=== PATIENT | female | born 1990 | race Caucasian/White ===

== ENCOUNTER 2018-12-28 18:08 | Emergency (ER) | payer OTHER ==
[2018-12-28] MEDS ORDERED: SODIUM CHLORIDE 0.9% 1,000 ML IV STA (18:24)
[2018-12-28] MEDS ORDERED: ACETAMINOPHEN TAB 325 MG TAB PO STA (18:24)
--- NOTE | 2018-12-28 18:24 | ED ---
Abdominal Pain HPI - General Chief Complaint: Abdominal Pain Stated Complaint: POSS UTI, ACHY, FEVER Time Seen by Provider: 12/28/18 18:19 Source: patient Mode of arrival: ambulatory Limitations: no limitations - History of Present Illness Initial Comments: 28-year-old female who denies past medical history presents today for chief complaint of dysuria urgency frequency x 2-3 days. Patient states she has had urinary tract infection symptoms for the past 2-3 days. She states that she attempted to "flush" the urinary tract infection but increasing her fluids and adding cranberry juice to water. She states that this seemed to help with the dysuria. Patient states though today she developed fever in the 100s she states this was low-grade. She states that she's had chills and generalized body aches. Patient states she has noticed some bilateral flank pain. She denies any hematuria. Patient denies history of kidney stone. Patient denies any severe pain. Patient denies abdominal pain. Patient states she does have a slight amount of vaginal discharge that she feels is normal. Denies any orders or pain with sex. Patient denies any diarrhea or any other associated symptoms. Upon arrival patient is febrile. Heart rate 93. Blood pressure within normal limits. Patient appears well there is no signs of acute distress. Patient does not appear toxic. - Related Data Home Medications Medication Instructions Recorded Confirmed Vit No.124/Iron/Folic 1 each PO DAILY 11/25/14 12/26/14 [ Vitamin Tablet] Previous Rx's Medication Instructions Recorded Acetaminophen-Codeine 300-30mg 1 - 2 each PO Q4HR PRN #40 tab 12/27/14 [Tylenol w/codeine #3] Ibuprofen [Motrin] 600 mg PO Q6HR PRN #40 tab 12/27/14 Cephalexin [Keflex] 500 mg PO Q6HR 10 Days #40 cap 12/28/18 Allergies Allergy/AdvReac Type Severity Reaction Status Date / Time No Known Allergies Allergy Verified 12/28/18 18:22 Review of Systems ROS Statement: Those systems with pertinent positive or pertinent negative responses have been documented in the HPI. ROS Other: All systems not noted in ROS Statement are negative. Past Medical History Past Medical History: No Reported History Additional Past Medical History / Comment(s): OB history: First she delivered at 37 weeks 4#14 oz. This is her second and she has had care with me since 7 weeks. B neg, abs neg, Rub Imm, RPR NR, Hep B neg, HIV NR, declined quad, normal 1hr GTT, had rhogam at 28 weeks on 10-16-14. GBS neg. She did have an abscess in her axilla at 24 weeks that grew MRSA. History of Any Multi-Drug Resistant Organisms: MRSA Date of last positivie culture/infection: 295025 MDRO Source:: Pt states MRSA in right axilla Past Surgical History: Section Additional Past Surgical History / Comment(s): eyes, sinus Past Psychological History: Anxiety, Depression Smoking Status: Former smoker Past Alcohol Use History: Occasional Past Drug Use History: None Reported - Past Family History Father Family Medical History: Hypertension General Exam - General Exam Comments Initial Comments: General: The patient is awake and alert, in no distress, and does not appear acutely ill. Eye: +3 mm pupils are equal, round and reactive to light, extra-ocular movements are intact. No nystagmus. There is normal conjunctiva bilaterally. No signs of icterus. Cardiovascular: There is a regular rate and rhythm. No murmur, rub or gallop is appreciated. Respiratory: Lungs are clear to auscultation, respirations are non-labored, breath sounds are equal. No wheezes, stridor, rales, or rhonchi. Gastrointestinal: Soft, non-distended, non-tender abdomen without masses or organomegaly noted. There is no rebound or guarding present. No CVA tenderness. Bowel sounds are unremarkable. Pelvic: No external lesions, vaginal mucosa pink well rugated. Small amount of scant thin discharge in the vaginal vault without odor. No adnexal or cervical motion tenderness. No lesions noted on the cervix. Musculoskeletal: Normal ROM, no tenderness. Strength 5/5. Sensation intact. Pulses equal bilaterally 2+. Neurological: A&O x 3. CN II-XII intact, There are no obvious motor or sensory deficits. Coordination appears grossly intact. Speech is normal. Skin: Skin is warm and dry and no rashes or lesions are noted. Psychiatric: Cooperative, appropriate mood & affect, normal judgment. Limitations: no limitations Course Vital Signs 12/28/18 12/28/18 18:19 19:56 Temperature 100.8 F H 99.5 F Pulse Rate 93 75 Respiratory 20 18 Rate Blood Pressure 126/67 111/61 O2 Sat by Pulse 100 98 Oximetry Medical Decision Making - Medical Decision Making Well appearing 28yo female presenting for urinary tract infection symptoms. Patient sensitive been ongoing for the past 2-3 days. Patient denies any significant vaginal discharge. A pelvic exam there is no evidence of PID. Urinalysis consistent with a urinary tract infection with patient's complaints of fever some mild flank pain as well as leukocytosis consistent with diagnosis of pyelonephritis. At this time she does not appear septic nor toxic. She is very well-appearing. Patient has not been on outpatient antibiotics. Patient is given a single dose of ceftriaxone in the emergency department. Patient was discharged with prescription for Keflex. At this time I feel patient is stable for outpatient treatment for pyelonephritis. Return parameters were discussed at length the patient who verbalizes understanding. Urine culture is pending. I discussed the case maintained provider Dr. Perdomo prior to patients discharge. - Lab Data Result diagrams: 12/28/18 18:55 12/28/18 18:55 Lab Results 12/28/18 12/28/18 12/28/18 Range/Units 18:55 18:55 18:55 WBC 14.4 H (3.8-10.6) k/uL RBC 4.53 (3.80-5.40) m/uL Hgb 13.7 (11.4-16.0) gm/dL Hct 41.4 (34.0-46.0) % MCV 91.4 (80.0-100.0) fL MCH 30.3 (25.0-35.0) pg MCHC 33.1 (31.0-37.0) g/dL RDW 13.2 (11.5-15.5) % Plt Count 151 (150-450) k/uL Neutrophils % 79 % Lymphocytes % 15 % Monocytes % 4 % Eosinophils % 1 % Basophils % 0 % Neutrophils # 11.4 H (1.3-7.7) k/uL Lymphocytes # 2.2 (1.0-4.8) k/uL Monocytes # 0.6 (0-1.0) k/uL Eosinophils # 0.1 (0-0.7) k/uL Basophils # 0.0 (0-0.2) k/uL Sodium 139 (137-145) mmol/L Potassium 5.2 H (3.5-5.1) mmol/L Chloride 102 (98-107) mmol/L Carbon Dioxide 27 (22-30) mmol/L Anion Gap 10 mmol/L BUN 11 (7-17) mg/dL Creatinine 0.66 (0.52-1.04) mg/dL Est GFR (CKD-EPI)AfAm >90 (>60 ml/min/1.73 sqM) Est GFR (CKD-EPI)NonAf >90 (>60 ml/min/1.73 sqM) Glucose 95 (74-99) mg/dL Plasma Lactic Acid Jayden (0.7-2.0) mmol/L Calcium 9.2 (8.4-10.2) mg/dL Total Bilirubin 1.3 (0.2-1.3) mg/dL AST 43 H (14-36) U/L ALT 6 L (9-52) U/L Alkaline Phosphatase 67 (38-126) U/L Total Protein 8.1 (6.3-8.2) g/dL Albumin 4.8 (3.5-5.0) g/dL Urine Color Urine Appearance (Clear) Urine pH (5.0-8.0) Ur Specific Gladys (1.001-1.035) Urine Protein (Negative) Urine Glucose (UA) (Negative) Urine Ketones (Negative) Urine Blood (Negative) Urine Nitrite (Negative) Urine Bilirubin (Negative) Urine Urobilinogen (<2.0) mg/dL Ur Leukocyte Esterase (Negative) Urine RBC (0-5) /hpf Urine WBC (0-5) /hpf Ur Squamous Epith Cells (0-4) /hpf Urine Mucus (None) /hpf Urine HCG, Qual Not Detected (Not Detectd) Trichomonas Ag (Rapid) (Negative) 12/28/18 12/28/18 12/28/18 Range/Units 18:55 18:55 18:55 WBC (3.8-10.6) k/uL RBC (3.80-5.40) m/uL Hgb (11.4-16.0) gm/dL Hct (34.0-46.0) % MCV (80.0-100.0) fL MCH (25.0-35.0) pg MCHC (31.0-37.0) g/dL RDW (11.5-15.5) % Plt Count (150-450) k/uL Neutrophils % % Lymphocytes % % Monocytes % % Eosinophils % % Basophils % % Neutrophils # (1.3-7.7) k/uL Lymphocytes # (1.0-4.8) k/uL Monocytes # (0-1.0) k/uL Eosinophils # (0-0.7) k/uL Basophils # (0-0.2) k/uL Sodium (137-145) mmol/L Potassium (3.5-5.1) mmol/L Chloride (98-107) mmol/L Carbon Dioxide (22-30) mmol/L Anion Gap mmol/L BUN (7-17) mg/dL Creatinine (0.52-1.04) mg/dL Est GFR (CKD-EPI)AfAm (>60 ml/min/1.73 sqM) Est GFR (CKD-EPI)NonAf (>60 ml/min/1.73 sqM) Glucose (74-99) mg/dL Plasma Lactic Acid Jayden 1.3 (0.7-2.0) mmol/L Calcium (8.4-10.2) mg/dL Total Bilirubin (0.2-1.3) mg/dL AST (14-36) U/L ALT (9-52) U/L Alkaline Phosphatase (38-126) U/L Total Protein (6.3-8.2) g/dL Albumin (3.5-5.0) g/dL Urine Color Light Yellow Urine Appearance Clear (Clear) Urine pH 8.0 (5.0-8.0) Ur Specific Gladys 1.008 (1.001-1.035) Urine Protein Negative (Negative) Urine Glucose (UA) Negative (Negative) Urine Ketones Negative (Negative) Urine Blood Negative (Negative) Urine Nitrite Negative (Negative) Urine Bilirubin Negative (Negative) Urine Urobilinogen <2.0 (<2.0) mg/dL Ur Leukocyte Esterase Moderate H (Negative) Urine RBC 2 (0-5) /hpf Urine WBC 37 H (0-5) /hpf Ur Squamous Epith Cells <1 (0-4) /hpf Urine Mucus Rare H (None) /hpf Urine HCG, Qual (Not Detectd) Trichomonas Ag (Rapid) Negative (Negative) Disposition Clinical Impression: Pyelonephritis Disposition: HOME SELF-CARE Condition: Good Instructions (If sedation given, give patient instructions): Kidney Infection (ED) Additional Instructions: Please use medication as discussed. Please follow-up with family doctor in the next 2 days. Please return to emergency room if the symptoms increase or worsen or for any other concerns, persistent fever, overall feeling unwell, increasing pain, persistent symptoms. Prescriptions: Cephalexin [Keflex] 500 mg PO Q6HR 10 Days #40 cap Is patient prescribed a controlled substance at d/c from ED?: No Referrals: None,Stated [Primary Care Provider] - 1-2 days [facility] [NON-STAFF] - 1-2 days Time of Disposition: 19:45
[2018-12-28 19:15] LABS: Appearance,Urine Clear (Clear); Bilirubin,Urine Negative (Negative); Blood,Urine Negative (Negative); Color,Urine Light Yellow; Glucose,Urine (UA) Negative (Negative); Ketones,Urine Negative (Negative); Leukocyte Esterase,Urine Moderate (Negative); Mucus,Urine Rare /hpf; Nitrite,Urine Negative (Negative); Protein,Urine Negative (Negative); RBC,Urine 2 /hpf (0-5); Specific Gravity,Urine 1.008 (1.001-1.035); Squamous Epithelial Cell,Urine <1 /hpf (0-4); Urobilinogen,Urine <2.0 mg/dL (<2.0); WBC,Urine 37 /hpf (0-5)
[2018-12-28 19:18] LABS: Basophils % (A) 0 %; Eosinophils # (A) 0.1 k/uL (0-0.7); Eosinophils % (A) 1 %; HCT 41.4 % (34.0-46.0); HGB 13.7 gm/dL (11.4-16.0); Lymphocytes # (A) 2.2 k/uL (1.0-4.8); Lymphocytes % (A) 15 %; MCH 30.3 pg (25.0-35.0); MCHC 33.1 g/dL (31.0-37.0); MCV 91.4 fL (80.0-100.0); Mean Platelet Volume 9.2; Monocytes # (A) 0.6 k/uL (0-1.0); Monocytes % (A) 4 %; Neutrophils # (A) 11.4 k/uL (1.3-7.7); Neutrophils % (A) 79 %; Platelet Count 151 k/uL (150-450); RBC 4.53 m/uL (3.80-5.40); RDW 13.2 % (11.5-15.5); WBC 14.4 k/uL (3.8-10.6)
[2018-12-28 19:27] LABS: ALT 6 U/L (9-52); AST 43 U/L (14-36); African American GFR (CKD) >90 (>60 ml/min/1.73 sqM); Albumin 4.8 g/dL (3.5-5.0); Alkaline Phosphatase 67 U/L (38-126); Anion Gap 10 mmol/L; Blood Urea Nitrogen 11 mg/dL (7-17); Calcium 9.2 mg/dL (8.4-10.2); Carbon Dioxide 27 mmol/L (22-30); Chloride 102 mmol/L (98-107); Glucose 95 mg/dL (74-99); Sodium 139 mmol/L (137-145); Total Bilirubin 1.3 mg/dL (0.2-1.3); Total Protein 8.1 g/dL (6.3-8.2)
[2018-12-28 19:29] LABS: Potassium 5.2 mmol/L (3.5-5.1)
[2018-12-28] MEDS ORDERED: cefTRIAXone IN SWFI 1,000 MG/10 ML SYRINGE IVP STA (19:29)
[2018-12-28 19:57] VITALS: BP 111/61; PULSE 75; RESP 18; TEMP 99.5
[2018-12-30 13:38] LABS: C. trachomatis,PCR Negative (Neg,Equiv); Chlamydia trachomatis Source Vagina; N. gonorrhoeae,PCR Negative (Neg,Equiv); Neisseria Source Vagina
== END 2018-12-28 19:57 | disposition home or self-care (01) ==
LOC: EC 18:08
DX: N12 Tubulo-interstitial nephritis, not specified as acute or chronic (principal); D72.829 Elevated white blood cell count, unspecified; N39.0 Urinary tract infection, site not specified; Z86.14 Personal history of Methicillin resistant Staphylococcus aureus infection; Z87.891 Personal history of nicotine dependence
CPT/HCPCS: 36415; 80053; 83605; 85025; 81001; 81025; 87040; 87808; 87491; 87591; 87070; 87086; 87077; 87186; 99284; 96374; 96361; J0696; 87205

== ENCOUNTER 2020-11-30 19:18 | Emergency (ER) | payer OTHER ==
[2020-11-30 19:30] VITALS: BP 115/82; PULSE 94; RESP 18; TEMP 97.8
[2020-11-30] MEDS ORDERED: ACETAMINOPHEN TAB 325 MG TAB PO STA (19:49)
[2020-11-30] MEDS ORDERED: IBUPROFEN 600 MG TAB PO STA (19:49)
--- NOTE | 2020-11-30 21:04 | XR ---
Right ankle HISTORY: Trauma and pain 3 views the right ankle There is soft tissue swelling present. Bone mineralization, joint spaces and alignment are maintained . IMPRESSION: No fracture or dislocation. Soft tissue swelling.
--- NOTE | 2020-11-30 21:11 | ED ---
Lower Extremity Injury HPI - General Chief Complaint: Extremity Injury, Lower Stated Complaint: RT ankle injury Time Seen by Provider: 11/30/20 19:32 Source: patient Mode of arrival: wheelchair Limitations: no limitations - History of Present Illness Initial Comments: 30-year-old female patient presents to the emergency department today for evaluation of right ankle injury. Patient states she was playing basketball, jumped to take a shot and her foot came down on the curb causing injury. States she is having most pain around the lateral aspect of the ankle. Denies numbness or tingling. Denies previous injury to this ankle. Denies falling, hitting her head, or sustaining other injuries. Denies chance of . - Related Data Home Medications Medication Instructions Recorded Confirmed Vit No.124/Iron/Folic 1 each PO DAILY 11/25/14 12/26/14 [ Vitamin Tablet] Previous Rx's Medication Instructions Recorded Acetaminophen-Codeine 300-30mg 1 - 2 each PO Q4HR PRN #40 tab 12/27/14 [Tylenol w/codeine #3] Ibuprofen [Motrin] 600 mg PO Q6HR PRN #40 tab 12/27/14 Cephalexin [Keflex] 500 mg PO Q6HR 10 Days #40 cap 12/28/18 Ibuprofen [Motrin] 600 mg PO Q8HR PRN #30 tab 11/30/20 Allergies Allergy/AdvReac Type Severity Reaction Status Date / Time banana AdvReac Nausea & Verified 11/30/20 19:30 Vomiting Review of Systems ROS Statement: Those systems with pertinent positive or pertinent negative responses have been documented in the HPI. ROS Other: All systems not noted in ROS Statement are negative. Past Medical History Past Medical History: No Reported History Additional Past Medical History / Comment(s): OB history: First she delivered at 37 weeks 4#14 oz. This is her second and she has had care with me since 7 weeks. B neg, abs neg, Rub Imm, RPR NR, Hep B neg, HIV NR, declined quad, normal 1hr GTT, had rhogam at 28 weeks on 10-16-14. GBS neg. She did have an abscess in her axilla at 24 weeks that grew MRSA. History of Any Multi-Drug Resistant Organisms: MRSA Date of last positivie culture/infection: [id number] MDRO Source:: Pt states MRSA in right axilla Past Surgical History: Section Additional Past Surgical History / Comment(s): eyes, sinus Past Psychological History: Anxiety, Depression Smoking Status: Never smoker Past Alcohol Use History: Occasional Past Drug Use History: Marijuana - Past Family History Father Family Medical History: Hypertension General Exam Limitations: no limitations General appearance: alert, in no apparent distress, other (Physical well- developed, well-nourished adult female patient in no acute distress.) Respiratory exam: Present: normal lung sounds bilaterally. Absent: respiratory distress, wheezes, rales, rhonchi, stridor Cardiovascular Exam: Present: regular rate, normal rhythm, normal heart sounds. Absent: systolic murmur, diastolic murmur, rubs, gallop, clicks GI/Abdominal exam: Present: soft, normal bowel sounds. Absent: distended, tenderness, guarding, rebound, rigid Extremities exam: Present: full ROM, tenderness (Right lateral malleolus), normal capillary refill, other (There is tenderness and swelling surrounding the right lateral malleolus. No fifth metatarsal tenderness. Skin is otherwise pink, warm, dry. Cap refill less than 3 seconds. Pedal and posttibial pulses are 2+.). Absent: normal inspection, pedal edema, joint swelling, calf tenderness Neurological exam: Present: alert, oriented X3, CN II-XII intact Psychiatric exam: Present: normal affect, normal mood Skin exam: Present: warm, dry, intact, normal color. Absent: rash Course Vital Signs 11/30/20 19:25 Temperature 97.8 F Pulse Rate 94 Respiratory 18 Rate Blood Pressure 115/82 O2 Sat by Pulse 99 Oximetry Medical Decision Making - Medical Decision Making 30-year-old female patient presents to the emergency department today for evaluation of right ankle pain. Physical examination did reveal soft tissue swelling surrounding the right lateral malleolus. Neurovascular status is intact. X-rays are negative for acute fracture. She is placed in ankle stirrup splint for sprain. She'll be discharged from the primary care physician for recheck in 1-2 days. Instructed to have repeat x-rays performed in 7-10 days. Return parameters were discussed in detail. She verbalizes understanding and agrees with this plan. Case discussed with my attending Dr. Harvey. - Radiology Data Radiology results: report reviewed, image reviewed 3 views of the right ankle are obtained. Report was reviewed in its entirety. Impression by Dr. Estrada shows no fracture or dislocation. Soft tissue swelling. Disposition Clinical Impression: Right ankle sprain Disposition: HOME SELF-CARE Condition: Good Instructions (If sedation given, give patient instructions): Ankle Sprain (ED) Additional Instructions: Rest, ice, elevate the ankle. Use splint for comfort and support. Take Tylenol and Motrin alternating for pain control. Follow-up through primary care physician for recheck in 1-2 days. Have repeat images performed in 7-10 days if pain symptoms persist. Return to the emergency department for any new, worsening, or concerning symptoms. Prescriptions: Ibuprofen [Motrin] 600 mg PO Q8HR PRN #30 tab PRN Reason: Pain Is patient prescribed a controlled substance at d/c from ED?: No Referrals: James Bonilla MD [STAFF PHYSICIAN] - 1-2 days Time of Disposition: 21:10
== END 2020-11-30 21:23 | disposition home or self-care (01) ==
LOC: EC 19:18
DX: S93.401A Sprain of unspecified ligament of right ankle, initial encounter (principal); X58.XXXA Exposure to other specified factors, initial encounter; Y93.67 Activity, basketball
CPT/HCPCS: 73610; 99282; 29515; L4350